=== PATIENT | female | born 1970 | race American Indian/Alaskan Native ===

== ENCOUNTER 2020-01-05 09:12 | Outpatient (CLI) | payer BC ==
[2020-01-05 10:13] LABS: Alanine Aminotransferase 17 units/L (7-56); Albumin 3.7 g/dL (3.9-5); BUN/Creatinine Ratio 11; Blood Urea Nitrogen 17 mg/dL (7-17); Calcium 9.1 mg/dL (8.4-10.2); Creatine Kinase MB < 1.0 ng/mL (0.0-4.0); Hemolysis Index 2
[2020-01-09 12:09] LABS: Vitamin D, 25-OH, D2 <4 ng/mL
== END 2020-01-05 09:13 | disposition home or self-care (01) ==
LOC: LAB 09:12
PROVIDERS: ATTEND Specialist
DX: G35 Multiple sclerosis (principal); G62.9 Polyneuropathy, unspecified
CPT/HCPCS: 36415; 80053; 82085; 82306; 82553; 82607; 83036; 83921; 84443; 86334; 86592; 86689